=== PATIENT | female | born 1955 | race Caucasian/White ===

== ENCOUNTER → 2016-07-17 | Outpatient (CLI) | payer BC, OTHER ==
[~2016-07-17] MED LIST: /MOM400 PO; COLA50CA3 PO; DIOV320T PO; FLUO10CA8 PO; MUCI600T34 PO; NEXI2.5G PO; PRAV40TA2 PO
--- NOTE | 2016-07-17 16:07 | REP ---
Clinical: Walking pneumonia. Comparison: 10/08/2013. Technique: PA and lateral. Findings: The mediastinum and cardiac silhouette are normal. The lung callahan are clear and without acute consolidation, effusion, or pneumothorax. The skeletal structures are intact and normal. Impression: 1. No acute cardiopulmonary process. Signed by Luis Bills MD 07/17/2016 03:59 P
--- NOTE | 2016-07-18 09:28 | ECGEPIP ---
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
== END ==
LOC: M RAD 15:31
PROVIDERS: ATTEND Family Medicine
DX: J44.9 Chronic obstructive pulmonary disease, unspecified (principal); I10 Essential (primary) hypertension

== ENCOUNTER → 2016-07-18 | Outpatient (CLI) | payer BC, OTHER ==
[2016-07-18 13:09] LABS: MEAN CORPUSCULAR HEMOGLOBIN 34.6 pg (27.0-33.0); MEAN CORPUSCULAR HGB CONC 35.8 g/dl (32.0-36.5); MEAN CORPUSCULAR VOLUME 96.5 fl (80.0-96.0); RED CELL DISTRIBUTION WIDTH 12.8 % (11.5-14.5); WHITE BLOOD COUNT 7.1 K/mm3 (4.0-10.0)
[2016-07-18 14:12] LABS: VITAMIN B12 LEVEL 868 PG/ML (247-911)
[2016-07-18 14:21] LABS: ALBUMIN/GLOBULIN RATIO 1.38 (1.00-1.93); ALKALINE PHOSPHATASE 88 U/L (45-117); ALT/SGPT 36 U/L (12-78); ANION GAP 7 MEQ/L (8-16); AST/SGOT 23 U/L (15-37); BILIRUBIN,TOTAL 0.5 MG/DL (0.2-1.0); BLOOD UREA NITROGEN 14 MG/DL (7-18); CARBON DIOXIDE LEVEL 31 MEQ/L (21-32); CHLORIDE LEVEL 101 MEQ/L (98-107); CHOLESTEROL LEVEL 232 MG/DL (<200); CREATININE FOR GFR 0.83 MG/DL (0.55-1.02); GLOMERULAR FILTRATION RATE > 60.0 (>45); GLUCOSE, FASTING 87 MG/DL (80-110); PERCENT SATURATION 30.8 % (13.2-37.4); POTASSIUM SERUM 3.9 MEQ/L (3.5-5.1); SODIUM LEVEL 139 MEQ/L (136-145); THYROXINE (T4) 10.9 UG/DL (4.5-12.0); TOTAL IRON BINDING CAPACITY 380 UG/DL (250-450); TOTAL PROTEIN 6.9 GM/DL (6.4-8.2); TRIGLYCERIDES LEVEL 70 MG/DL (<150)
== END ==
LOC: M LAB 12:37
PROVIDERS: ATTEND Family Medicine
DX: D64.9 Anemia, unspecified (principal); R53.83 Other fatigue; E03.9 Hypothyroidism, unspecified

== ENCOUNTER → 2016-11-28 | Outpatient (CLI) | payer BC, OTHER ==
[2016-11-28 10:35] LABS: MEAN CORPUSCULAR HEMOGLOBIN 33.6 pg (27.0-33.0); MEAN CORPUSCULAR VOLUME 98.6 fl (80.0-96.0); RED CELL DISTRIBUTION WIDTH 13.3 % (11.5-14.5); WHITE BLOOD COUNT 6.5 K/mm3 (4.0-10.0)
[2016-11-28 10:52] LABS: ALBUMIN 3.9 GM/DL (3.2-5.2); ALBUMIN/GLOBULIN RATIO 1.26 (1.00-1.93); ALKALINE PHOSPHATASE 71 U/L (45-117); ALT/SGPT 37 U/L (12-78); ANION GAP 3 MEQ/L (8-16); AST/SGOT 29 U/L (15-37); BILIRUBIN,TOTAL 0.5 MG/DL (0.2-1.0); BLOOD UREA NITROGEN 18 MG/DL (7-18); CALCIUM LEVEL 8.8 MG/DL (8.8-10.2); CARBON DIOXIDE LEVEL 32 MEQ/L (21-32); CHLORIDE LEVEL 104 MEQ/L (98-107); CHOLESTEROL LEVEL 248 MG/DL (<200); CREATININE FOR GFR 0.77 MG/DL (0.55-1.02); GLOMERULAR FILTRATION RATE > 60.0 (>45); GLUCOSE, FASTING 108 MG/DL (80-110); SODIUM LEVEL 139 MEQ/L (136-145); TRIGLYCERIDES LEVEL 143 MG/DL (<150)
== END ==
LOC: M LAB 09:45
PROVIDERS: ATTEND Family Medicine
DX: E55.9 Vitamin D deficiency, unspecified (principal); I10 Essential (primary) hypertension; E03.9 Hypothyroidism, unspecified

== ENCOUNTER → 2017-02-15 | Outpatient (CLI) | payer BC, OTHER ==
--- NOTE | 2017-02-16 09:34 | REPMRS ---
Patient History The patient states she had a clinical breast exam in 12/23 Patient is postmenopausal and had first child at age 32. Family history of uterine cancer in mother and breast cancer in maternal aunt at age 50 or over. Digital Woman Screen Mammo: February 16, 2017 - Exam #: [id number] Bilateral CC and MLO view(s) were taken. Technologist: Swetha Wiley, Technologist Prior study comparison: February 15, 2016, digital woman screen mammo performed at [facility]. February 02, 2015, digital woman screen mammo performed at [facility]. FINDINGS: There are scattered fibroglandular densities. There has been no change in the appearance of the mammogram from the prior studies. There is a mild amount of residual fibroglandular tissue which is fairly symmetric. There is no interval development of dominant mass, architectural distortion, or clustered microcalcification suggestive of malignancy. ASSESSMENT: BI-RADS/ACR category 1 mammogram. Negative. Recommendation Routine screening mammogram in 1 year (for women over age 40). This mammogram was interpreted with the aid of an FDA-approved computer-aided dectection system. Electronically Signed By: Brigido Vegas MD 02/16/17 0934
== END ==
LOC: M WHC 15:23
PROVIDERS: ATTEND Obstetrics & Gynecology
DX: Z12.31 Encounter for screening mammogram for malignant neoplasm of breast (principal)

== ENCOUNTER → 2017-06-26 | Outpatient (CLI) | payer BC, OTHER ==
[2017-06-26 08:45] LABS: ANION GAP 8 MEQ/L (8-16); BLOOD UREA NITROGEN 20 MG/DL (7-18); CARBON DIOXIDE LEVEL 29 MEQ/L (21-32); CHLORIDE LEVEL 104 MEQ/L (98-107); CREATININE FOR GFR 0.89 MG/DL (0.55-1.02); GLOMERULAR FILTRATION RATE > 60.0 (>45); GLUCOSE, FASTING 104 MG/DL (80-110); POTASSIUM SERUM 4.3 MEQ/L (3.5-5.1); SODIUM LEVEL 141 MEQ/L (136-145)
== END ==
LOC: M LAB 07:36
PROVIDERS: ATTEND Family Medicine
DX: I10 Essential (primary) hypertension (principal)

== ENCOUNTER → 2017-08-31 | Outpatient (CLI) | payer BC, OTHER | LOC: M RAD 13:14 | DX: M66.371 Spontaneous rupture of flexor tendons, right ankle and foot (principal); M21.41 Flat foot [pes planus] (acquired), right foot | CPT/HCPCS: 73721 ==

== ENCOUNTER → 2018-02-19 | Outpatient (CLI) | payer BC, OTHER | LOC: M WHC 08:21 | DX: Z12.31 Encounter for screening mammogram for malignant neoplasm of breast (principal) | CPT/HCPCS: 77067 ==

== ENCOUNTER → 2018-08-14 | Outpatient (CLI) | payer OTHER, BC ==
[2018-08-14 13:18] LABS: HEMATOCRIT 41.4 % (36.0-47.0); HEMOGLOBIN 13.9 g/dl (12.0-15.5); MEAN CORPUSCULAR HEMOGLOBIN 32.3 pg (27.0-33.0); MEAN CORPUSCULAR HGB CONC 33.6 g/dl (32.0-36.5); MEAN CORPUSCULAR VOLUME 96.1 fl (80.0-96.0); PLATELET COUNT, AUTOMATED 202 10^3/uL (150-450); RED BLOOD COUNT 4.31 10^6/uL (4.00-5.40)
[2018-08-14 13:27] LABS: WHITE BLOOD COUNT 8.4 10^3/uL (4.0-10.0)
[2018-08-14 13:49] LABS: ALBUMIN 4.1 GM/DL (3.2-5.2); ALT/SGPT 64 U/L (12-78); BILIRUBIN,TOTAL 0.4 MG/DL (0.2-1.0); BLOOD UREA NITROGEN 12 MG/DL (7-18); CALCIUM LEVEL 8.9 MG/DL (8.8-10.2); CARBON DIOXIDE LEVEL 30 MEQ/L (21-32); CHLORIDE LEVEL 102 MEQ/L (98-107); CHOLESTEROL LEVEL 294 MG/DL (<200); CHOLESTEROL RISK RATIO 5.444 (<5); CREATININE FOR GFR 0.79 MG/DL (0.55-1.30); FREE T3 2.7 PG/ML (2.2-4.0); FREE T4 0.95 NG/DL (0.76-1.46); GLOMERULAR FILTRATION RATE > 60.0 (>45); GLUCOSE, FASTING 104 MG/DL (70-100); HDL CHOLESTEROL 54 MG/DL (>40); LDL CHOLESTEROL 192 MG/DL (<100); NON-HDL-C 240 MG/DL; POTASSIUM SERUM 4.3 MEQ/L (3.5-5.1); SODIUM LEVEL 138 MEQ/L (136-145); TOTAL 25(OH) VITAMIN D 23.5 NG/ML (30.0-100.0); TRIGLYCERIDES LEVEL 239 MG/DL (<150); URIC ACID 4.8 MG/DL (2.6-6.0)
[2018-08-14 14:01] LABS: ATYPICAL LYMPH 2 % (0-5); EOSINOPHILS 2 % (0-5); LYMPHOCYTES 66 % (16-52); MONOCYTES 7 % (0-8); NEUTROPHILS 23 % (35-75)
[2018-08-14 14:02] LABS: PLATELET ESTIMATE NORMAL (NORMAL)
== END ==
LOC: M WUC 09:33
PROVIDERS: ATTEND Family Medicine
DX: E55.9 Vitamin D deficiency, unspecified (principal); E03.9 Hypothyroidism, unspecified; I10 Essential (primary) hypertension; M10.9 Gout, unspecified

== ENCOUNTER → 2019-02-10 | Outpatient (CLI) | payer OTHER, BC ==
[~2019-02-10] MED LIST changes: -/MOM400 PO; +MILK10SU PO
[2019-02-10 09:31] LABS: ALT/SGPT 53 U/L (12-78); BILIRUBIN,TOTAL 0.4 MG/DL (0.2-1.0); BLOOD UREA NITROGEN 17 MG/DL (7-18); CALCIUM LEVEL 9.1 MG/DL (8.8-10.2); CARBON DIOXIDE LEVEL 30 MEQ/L (21-32); CHLORIDE LEVEL 103 MEQ/L (98-107); CHOLESTEROL LEVEL 175 MG/DL (<200); CHOLESTEROL RISK RATIO 2.868 (<5); CREATININE FOR GFR 0.79 MG/DL (0.55-1.30); GLOMERULAR FILTRATION RATE > 60.0 (>45); GLUCOSE, FASTING 112 MG/DL (70-100); HDL CHOLESTEROL 61 MG/DL (>40); LDL CHOLESTEROL 81 MG/DL (<100); NON-HDL-C 114 MG/DL; POTASSIUM SERUM 4.6 MEQ/L (3.5-5.1); SODIUM LEVEL 139 MEQ/L (136-145); TRIGLYCERIDES LEVEL 164 MG/DL (<150)
[2019-02-10 12:04] LABS: TOTAL 25(OH) VITAMIN D 38.5 NG/ML (30.0-100.0)
== END ==
LOC: M WUC 08:17
PROVIDERS: ATTEND Family Medicine
DX: E55.9 Vitamin D deficiency, unspecified (principal); E78.5 Hyperlipidemia, unspecified

== ENCOUNTER 2019-02-23 10:39 | Emergency (ER) | payer BC, OTHER ==
[~2019-02-23] VITALS: Ht 170.2 cm; Wt 118.6 kg
[2019-02-23 11:34] LABS: HEMATOCRIT 40.8 % (36.0-47.0); HEMOGLOBIN 14.3 g/dl (12.0-15.5); MEAN CORPUSCULAR HEMOGLOBIN 33.6 pg (27.0-33.0); MEAN CORPUSCULAR VOLUME 95.8 fl (80.0-96.0); PLATELET COUNT, AUTOMATED 173 10^3/uL (150-450); RED BLOOD COUNT 4.26 10^6/uL (4.00-5.40)
[2019-02-23 11:35] LABS: WHITE BLOOD COUNT 8.7 10^3/uL (4.0-10.0)
[2019-02-23 11:43] LABS: ATYPICAL LYMPH 6 % (0-5); BASOPHILS 1 % (0-4); EOSINOPHILS 2 % (0-5); LYMPHOCYTES 72 % (16-52); MONOCYTES 4 % (0-8); NEUTROPHILS 15 % (35-75)
[2019-02-23 11:44] LABS: ANISOCYTOSIS 1+; PLATELET ESTIMATE NORMAL (NORMAL); POLYCHROMASIA 1+
[2019-02-23 11:48] LABS: INR 1.03; PROTHROMBIN TIME 13.2 SECONDS (11.8-14.0)
[2019-02-23 11:49] LABS: PARTIAL THROMBOPLASTIN TIME 26.1 SECONDS (25.0-38.4)
[2019-02-23 12:04] LABS: BLOOD UREA NITROGEN 11 MG/DL (7-18); CALCIUM LEVEL 9.3 MG/DL (8.8-10.2); CARBON DIOXIDE LEVEL 28 MEQ/L (21-32); CHLORIDE LEVEL 105 MEQ/L (98-107); CK-MB VALUE MASS 2.3 NG/ML (<3.6); CPK CREATINE PHOSPHOKINASE 157 U/L (26-192); GLOMERULAR FILTRATION RATE > 60.0 (>45); GLUCOSE, FASTING 168 MG/DL (70-100); MB/CK RELATIVE INDEX 1.46 (< OR =4); POTASSIUM SERUM 3.5 MEQ/L (3.5-5.1); SODIUM LEVEL 139 MEQ/L (136-145); TROPONIN I < 0.02 NG/ML (< 0.10)
[2019-02-23] MEDS ORDERED: MONT10TA2 PO (12:32)
[2019-02-23] MEDS ORDERED: FLUO20CA19 PO (12:32)
[2019-02-23] MEDS ORDERED: MUCI1TAB18 PO (12:32)
[2019-02-23] MEDS ORDERED: ASPI81CH2 PO (12:32)
[2019-02-23] MEDS ORDERED: LOSA100T50 PO (12:32)
[2019-02-23] MEDS ORDERED: SYNT75TA PO (12:32)
[2019-02-23] MEDS ORDERED: ZYLO300T6 PO (12:32)
[2019-02-23] MEDS ORDERED: COLC1TAB13 PO (12:32)
[2019-02-23] MEDS ORDERED: ATOR40TA75 PO (12:32)
[2019-02-23] MEDS ORDERED: D-50CAP PO (12:32)
[2019-02-23] MEDS ORDERED: OMEP40CA97 PO (12:32)
[2019-02-23] MEDS ORDERED: MAGN250T7 PO (12:32)
[2019-02-23 12:44] VITALS: BP 172/94
[2019-02-23] MEDS ORDERED: LOSARTAN 50 MG TAB PO ONE (12:45)
[2019-02-23] MEDS ORDERED: TEARSOL10 OP (12:56)
[2019-02-23] MEDS ORDERED: VALT500T PO (12:56)
[2019-02-23 13:05] VITALS: BP 160/85
--- NOTE | 2019-02-23 19:26 | ECGEPIP ---
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
--- NOTE | 2019-02-24 08:01 | REP ---
CT BRAIN WITHOUT CONTRAST: 02/23/2019. Clinical history: Possible CVA. Findings: Standard noncontrast views were obtained with soft tissue and bone windows presented. There are no prior studies. Lateral ventricles midline, symmetric and without dilatation or displacement. Third and fourth ventricles also unremarkable. There is mild cerebral atrophy greatest in the temporal and frontal lobes. May be slightly greater than I would expect for this age. Basal ganglia symmetric. There is heterogeneous low attenuation white matter change that may reflect some degree of small-vessel ischemic disease. The cortical stripe silhouette mildly atrophic was preserved. There is no vascular territory infarct, intracranial hemorrhage, mass, mass effect or abnormal extra-axial fluid collection. Posterior fossa shows the brainstem intact and the cerebellum preserved. There are atherosclerotic calcifications in the vertebral basilar arteries and carotid siphons. Mastoids, sphenoids and left frontal sinus intact. The right frontal and ethmoid air cells and a few left ethmoid air cells show mucosal thickening. Calvarium and skull base otherwise intact. Impression: 1. Some mild atrophy with small vessel chronic ischemic change of portion of ventricular size. No acute infarct, intracranial hemorrhage, mass or mass effect. 2. Ethmoid and right frontal sinus mucosal thickening. 3. No focal lesion. Skull base or calvarium. Atherosclerotic calcifications carotid siphons and vertebral basilar arteries. Electronically Signed by Colin Tate MD 02/24/2019 08:07 A
--- NOTE | 2019-02-24 08:07 | REP ---
AP PORTABLE CHEST: 02/23/2019. Comparison: 07/17/2016. Clinical history: CVA. Findings: Lungs well inflated. There is no pleural effusion, lateral pleural thickening or apical scarring. Some minor basilar fibrotic or atelectatic changes but no dense consolidation or parenchymal mass. Heart, mediastinal, and hilar contours intact. Aorta normal. Airway intact. Some degenerative changes of the spine. Impression: 1. Some basilar fibrotic change without acute cardiopulmonary disease. Electronically Signed by Colin Tate MD 02/24/2019 08:08 A
[2019-02-26 00:06] LABS: Lyme Disease IgG/IgM Antibodie <0.91 ISR (0.00-0.90); Lyme Disease IgM Ab Quantitati <0.80 index (0.00-0.79)
== END 2019-02-23 13:13 | disposition home or self-care (01) ==
LOC: M ED 10:39
DX: G51.0 Bell's palsy (principal); I10 Essential (primary) hypertension; E78.00 Pure hypercholesterolemia, unspecified; F33.9 Major depressive disorder, recurrent, unspecified; F41.9 Anxiety disorder, unspecified; Z79.899 Other long term (current) drug therapy; Z79.890 Hormone replacement therapy; Z79.82 Long term (current) use of aspirin; Z88.5 Allergy status to narcotic agent

== ENCOUNTER → 2019-03-14 | Outpatient (CLI) | payer BC ==
[~2019-03-14] MED LIST changes: +ASPI81CH2 PO; +ATOR40TA75 PO; +COLC1TAB13 PO; +D-50CAP PO; +FLUO20CA19 PO; +LOSA100T50 PO; +MAGN250T7 PO; +MONT10TA2 PO; +MUCI1TAB18 PO; +OMEP40CA2 PO; +SYNT75TA PO; +TEARSOL10 OP; +VALT500T PO; +ZYLO300T6 PO
--- NOTE | 2019-03-14 15:16 | REPMRS ---
Patient History The patient states she had a clinical breast exam in 12/2018. Patient is postmenopausal and had first child at age 32. Family history of breast cancer under age 50 in maternal aunt, endometrial cancer at age 50 or over in mother. 3D TOMOSYNTHESIS WAS PERFORMED. The [facility] lifetime risk for breast cancer is 13.5%. Digital Woman Screen Mammo: March 14, 2019 - Exam #: [id number] Bilateral CC and MLO view(s) were taken. Technologist: Ave Lucero Technologist Prior study comparison: February 19, 2018, bilateral digital woman screen mammo performed at [facility]. February 16, 2017, digital woman screen mammo performed at [facility]. FINDINGS: There are scattered fibroglandular densities. There has been no change in the appearance of the mammogram from the prior studies. There is a mild amount of residual fibroglandular tissue which is fairly symmetric. There is no interval development of dominant mass, architectural distortion, or clustered microcalcification suggestive of malignancy. Assessment: BI-RADS/ACR category 1 mammogram. Negative Mammogram. Recommendation Routine screening mammogram in 1 year (for women over age 40). This mammogram was interpreted with the aid of an FDA-approved computer-aided dectection system. Electronically Signed By: Brigido Vegas MD 03/14/19 9727
== END ==
LOC: M WHC 14:25
PROVIDERS: ATTEND Obstetrics & Gynecology
DX: Z12.31 Encounter for screening mammogram for malignant neoplasm of breast (principal); Z80.3 Family history of malignant neoplasm of breast; Z80.49 Family history of malignant neoplasm of other genital organs

== ENCOUNTER → 2019-03-17 | Outpatient (CLI) | payer BC ==
[2019-03-17 17:24] LABS: FREE T4 0.97 NG/DL (0.76-1.46); FREE THYROXINE INDEX 3.2 % (1.3-4.8); RHEUMATOID FACTOR QUANT < 10.0 IU/ML (<15.0); T UPTAKE 31 % (30-39); THYROID STIMULATING HORMONE 0.753 uIU/ML (0.358-3.740); THYROXINE (T4) 10.2 UG/DL (4.5-12.0)
[2019-03-17 17:25] LABS: VITAMIN B12 LEVEL 696 PG/ML
[2019-03-17 17:34] LABS: FOLATE > 24.0 NG/ML
[2019-03-17 18:09] LABS: HEMOGLOBIN A1c 6.1 %
[2019-03-23 00:06] LABS: ANTINUCLEAR ANTIBODIES DIRECT Negative (Negative); VITAMIN B1 LEVEL WHOLE BLOOD 234.8 nmol/L (66.5-200.0); VITAMIN B6,PYRIDOXAL PHOSPHATE 48.7 ug/L (2.0-32.8); VITAMIN E(ALPHA TOCOPHEROL) 15.8 mg/L (9.0-29.0); VITAMIN E(GAMMA TOCOPHEROL) 0.9 mg/L (0.5-4.9)
== END ==
LOC: M WUC 11:37
PROVIDERS: ATTEND Psychiatry & Neurology Neurology
DX: E11.9 Type 2 diabetes mellitus without complications (principal); E07.9 Disorder of thyroid, unspecified; R20.0 Anesthesia of skin; R41.3 Other amnesia

== ENCOUNTER → 2019-06-06 | Outpatient (CLI) | payer BC, OTHER ==
[~2019-06-06] MED LIST changes: -OMEP40CA2 PO; +OMEP40CA97 PO
--- NOTE | 2019-06-06 13:29 | REP ---
Clinical: Pain. Trauma. Technique: AP, lateral, bilateral oblique views of the right ankle. Findings: Generalized swelling along with osteopenia and age-related degenerative changes are appreciated. No obvious acute fracture or dislocation. Impression: Swelling. Degenerative changes. No obvious acute fracture or dislocation. If the patient remains symptomatic consider reevaluation in 3-5 days. Electronically Signed by Luis Bills MD 06/06/2019 01:21 P
== END ==
LOC: M ADAMS 12:52
PROVIDERS: ATTEND Physician Assistant
DX: M25.571 Pain in right ankle and joints of right foot (principal); M79.89 Other specified soft tissue disorders; M19.071 Primary osteoarthritis, right ankle and foot

== ENCOUNTER → 2020-03-16 | Outpatient (CLI) | payer BC ==
[~2020-03-16] MED LIST changes: -FLUO20CA19 PO; +FLUO20CA22 PO; -MONT10TA2 PO; +MONT10TA4 PO
--- NOTE | 2020-03-16 10:19 | REPMRS ---
Patient History The patient states she had a clinical breast exam in January 2020. Family history of breast cancer under age 50 in maternal aunt, endometrial cancer at age 50 or over in mother. 3D TOMOSYNTHESIS WAS PERFORMED. [facility] 13.[facility] %. MARLO HINKLE A. Digital Woman Screen Mammo: March 16, 2020 - Exam #: [id number] Bilateral CC and MLO view(s) were taken. Technologist: Marie Rowell, Technologist Prior study comparison: March 14, 2019, bilateral digital woman screen mammo performed at [facility]. February 19, 2018, bilateral digital woman screen mammo performed at [facility]. FINDINGS: There are scattered fibroglandular densities. There has been no change in the appearance of the mammogram from the prior studies. There is a mild amount of residual fibroglandular tissue which is fairly symmetric. There is no interval development of dominant mass, architectural distortion, or clustered microcalcification suggestive of malignancy. Assessment: BI-RADS/ACR category 1 mammogram. Negative Mammogram. Recommendation Routine screening mammogram in 1 year (for women over age 40). This mammogram was interpreted with the aid of an FDA-approved computer-aided dectection system. Electronically Signed By: Brigido Vegas MD 03/16/20 2622
== END ==
LOC: M WHC 09:03
PROVIDERS: ATTEND Obstetrics & Gynecology
DX: Z12.31 Encounter for screening mammogram for malignant neoplasm of breast (principal)

== ENCOUNTER → 2020-03-22 | Outpatient (CLI) | payer BC ==
[2020-03-22 16:25] LABS: HEMATOCRIT 43.3 % (36.0-47.0); HEMOGLOBIN 14.2 g/dl (12.0-15.5); MEAN CORPUSCULAR HEMOGLOBIN 32.1 pg (27.0-33.0); MEAN CORPUSCULAR HGB CONC 32.8 g/dl (32.0-36.5); MEAN CORPUSCULAR VOLUME 97.7 fl (80.0-96.0); PLATELET COUNT, AUTOMATED 178 10^3/uL (150-450); RED BLOOD COUNT 4.43 10^6/uL (4.00-5.40); WHITE BLOOD COUNT 11.4 10^3/uL (4.0-10.0)
[2020-03-22 17:12] LABS: ALBUMIN 4.1 GM/DL (3.2-5.2); ALT/SGPT 112 U/L (12-78); BILIRUBIN,TOTAL 0.5 MG/DL (0.2-1.0); BLOOD UREA NITROGEN 9 MG/DL (7-18); CALCIUM LEVEL 9.2 MG/DL (8.8-10.2); CARBON DIOXIDE LEVEL 30 MEQ/L (21-32); CHLORIDE LEVEL 102 MEQ/L (98-107); CHOLESTEROL LEVEL 181 MG/DL (<200); CHOLESTEROL RISK RATIO 3.232 (<5); CREATININE FOR GFR 0.86 MG/DL (0.55-1.30); FREE T3 3.3 PG/ML (2.2-4.0); FREE T4 1.06 NG/DL (0.76-1.46); GLOMERULAR FILTRATION RATE > 60.0 (>45); GLUCOSE, FASTING 99 MG/DL (70-100); HDL CHOLESTEROL 56 MG/DL (>40); LDL CHOLESTEROL 82 MG/DL (<100); NON-HDL-C 125 MG/DL; POTASSIUM SERUM 4.2 MEQ/L (3.5-5.1); SODIUM LEVEL 139 MEQ/L (136-145); THYROID STIMULATING HORMONE 0.998 uIU/ML (0.358-3.740); TOTAL 25(OH) VITAMIN D 35.5 NG/ML (30.0-100.0); TOTAL PROTEIN 7.1 GM/DL (6.4-8.2); TRIGLYCERIDES LEVEL 216 MG/DL (<150); URIC ACID 3.1 MG/DL (2.6-6.0)
[2020-03-22 17:51] LABS: HEMOGLOBIN A1c 6.1 %
== END ==
LOC: M WUC 10:36
PROVIDERS: ATTEND Family Medicine
DX: E55.9 Vitamin D deficiency, unspecified (principal); E03.9 Hypothyroidism, unspecified; I10 Essential (primary) hypertension; M10.9 Gout, unspecified; R73.01 Impaired fasting glucose

== ENCOUNTER → 2020-07-05 | Outpatient (CLI) | payer OTHER, BC ==
[~2020-07-05] MED LIST changes: +COLC0.6T47 PO; -COLC1TAB13 PO; -MONT10TA4 PO; +MONT5TAB2 PO
[2020-07-05 11:00] LABS: ALBUMIN 3.9 GM/DL (3.2-5.2); ALT/SGPT 147 U/L (12-78); BILIRUBIN,DIRECT 0.1 MG/DL (0.0-0.2); BILIRUBIN,TOTAL 0.4 MG/DL (0.2-1.0); FERRITIN 32 NG/ML (8-252); IRON (FE) 65 UG/DL (50-170); PERCENT SATURATION 17.5 % (13.2-45.0); TOTAL IRON BINDING CAPACITY 371 UG/DL (250-450); TOTAL PROTEIN 6.8 GM/DL (6.4-8.2)
[2020-07-05 11:21] LABS: HEPATITIS B SURFACE ANTIGEN NEGATIVE (NEGATIVE)
[2020-07-05 11:47] LABS: HEPATITIS C VIRUS ABY INDEX 0.1 INDEX (<0.8)
[2020-07-05 11:48] LABS: HEPATITIS B CORE ANTIBODY IGM NEGATIVE (NEGATIVE)
[2020-07-05 11:50] LABS: HEPATITIS A ANTIBODY IGM NEGATIVE (NEGATIVE)
== END ==
LOC: M WUC 08:39
PROVIDERS: ATTEND Family Medicine
DX: R74.01 Elevation of levels of liver transaminase levels (principal)

== ENCOUNTER → 2020-08-16 | Outpatient (CLI) | payer BC, OTHER ==
[~2020-08-16] MED LIST changes: +MONT10TA10 PO; -MONT5TAB2 PO
== END ==
LOC: M LABSMTC 12:56
PROVIDERS: ATTEND Family Medicine
DX: Z20.828 Contact with and (suspected) exposure to other viral communicable diseases (principal)
CPT/HCPCS: C9803; U0003

== ENCOUNTER → 2020-12-31 | Outpatient (CLI) | payer BC, OTHER ==
[~2020-12-31] MED LIST changes: +OMEP40CA4 PO; -OMEP40CA97 PO
--- NOTE | 2020-12-31 14:39 | REP ---
INDICATION: LOCALIZED SWELLING/MASS/LUMP ? HERNIA. COMPARISON: There are no priors for comparison. TECHNIQUE: Ultrasonographic evaluation of the left parasagittal lower abdomen over a palpable mass. FINDINGS: There is an echogenic 2 x 1.1 x 1.8 cm sized area. Color Doppler imaging shows no evidence of internal blood flow. IMPRESSION: Ultrasonographic findings, as described above, suggest possible hematoma or for possible area of fat necrosis. Contrast-enhanced CT examination is recommended. Accredited by the [employer] in General Ultrasound. <Electronically signed by Luis Buckner > 12/31/20 [id number]
== END ==
LOC: M RAD 13:20
PROVIDERS: ATTEND Family Medicine
DX: R22.9 Localized swelling, mass and lump, unspecified (principal)

== ENCOUNTER → 2021-01-17 | Outpatient (CLI) | payer OTHER, BC ==
[2021-01-17 12:18] LABS: HEMATOCRIT 43.4 % (36.0-47.0); HEMOGLOBIN 14.6 g/dl (12.0-15.5); MEAN CORPUSCULAR HEMOGLOBIN 33.3 pg (27.0-33.0); MEAN CORPUSCULAR HGB CONC 33.6 g/dl (32.0-36.5); MEAN CORPUSCULAR VOLUME 98.9 fl (80.0-96.0); PLATELET COUNT, AUTOMATED 163 10^3/uL (150-450); RED BLOOD COUNT 4.39 10^6/uL (4.00-5.40)
[2021-01-17 12:20] LABS: WHITE BLOOD COUNT 10.7 10^3/uL (4.0-10.0)
[2021-01-17 12:49] LABS: ATYPICAL LYMPH 18 % (0-5); BASOPHILS 1 % (0-1); EOSINOPHILS 1 % (0-3); LYMPHOCYTES 59 % (16-44); MONOCYTES 1 % (0-5); NEUTROPHILS 19 % (28-66); PLATELET ESTIMATE DECREASED (NORMAL)
[2021-01-17 12:58] LABS: ALBUMIN 4.5 GM/DL (3.2-5.2); ALT/SGPT 45 U/L (12-78); BILIRUBIN,TOTAL 0.5 MG/DL (0.2-1.0); BLOOD UREA NITROGEN 17 MG/DL (7-18); CALCIUM LEVEL 9.7 MG/DL (8.8-10.2); CARBON DIOXIDE LEVEL 30 MEQ/L (21-32); CHLORIDE LEVEL 105 MEQ/L (98-107); CREATININE FOR GFR 0.84 MG/DL (0.55-1.30); FOLATE > 24.0 NG/ML (>5.4); GLOMERULAR FILTRATION RATE > 60.0 (>45); GLUCOSE, FASTING 91 MG/DL (70-100); POTASSIUM SERUM 4.2 MEQ/L (3.5-5.1); SODIUM LEVEL 140 MEQ/L (136-145); TOTAL PROTEIN 7.3 GM/DL (6.4-8.2); VITAMIN B12 LEVEL 749 PG/ML (247-911)
== END ==
LOC: M WUC 09:28
PROVIDERS: ATTEND Family Medicine
DX: G31.84 Mild cognitive impairment of uncertain or unknown etiology (principal)

== ENCOUNTER → 2021-03-11 | Outpatient (CLI) | payer OTHER, BC ==
[2021-03-11 11:14] LABS: HEMATOCRIT 39.9 % (36.0-47.0); HEMOGLOBIN 13.6 g/dl (12.0-15.5); MEAN CORPUSCULAR HEMOGLOBIN 33.7 pg (27.0-33.0); MEAN CORPUSCULAR HGB CONC 34.1 g/dl (32.0-36.5); MEAN CORPUSCULAR VOLUME 98.8 fl (80.0-96.0); PLATELET COUNT, AUTOMATED 173 10^3/uL (150-450); RED BLOOD COUNT 4.04 10^6/uL (4.00-5.40); WHITE BLOOD COUNT 8.8 10^3/uL (4.0-10.0)
[2021-03-11 11:37] LABS: HEMOGLOBIN A1c 5.4 %
[2021-03-11 11:44] LABS: ALBUMIN 3.7 GM/DL (3.2-5.2); ALT/SGPT 50 U/L (12-78); BILIRUBIN,TOTAL 0.4 MG/DL (0.2-1.0); BLOOD UREA NITROGEN 11 MG/DL (7-18); CARBON DIOXIDE LEVEL 28 MEQ/L (21-32); CHLORIDE LEVEL 107 MEQ/L (98-107); CHOLESTEROL LEVEL 110 MG/DL (<200); CHOLESTEROL RISK RATIO 2.075 (<5); CREATININE FOR GFR 0.92 MG/DL (0.55-1.30); GLOMERULAR FILTRATION RATE > 60.0 (>45); GLUCOSE, FASTING 110 MG/DL (70-100); HDL CHOLESTEROL 53 MG/DL (>40); LDL CHOLESTEROL 46 MG/DL (<100); NON-HDL-C 57 MG/DL; POTASSIUM SERUM 4.2 MEQ/L (3.5-5.1); SODIUM LEVEL 141 MEQ/L (136-145); TOTAL PROTEIN 6.3 GM/DL (6.4-8.2); TRIGLYCERIDES LEVEL 53 MG/DL (<150); URIC ACID 4.6 MG/DL (2.6-6.0)
[2021-03-11 11:47] LABS: TOTAL 25(OH) VITAMIN D 48.8 NG/ML (30.0-100.0)
== END ==
LOC: M WUC 08:26
PROVIDERS: ATTEND Family Medicine
DX: E55.9 Vitamin D deficiency, unspecified (principal); I10 Essential (primary) hypertension; M10.9 Gout, unspecified; R73.01 Impaired fasting glucose

== ENCOUNTER → 2021-03-21 | Outpatient (CLI) | payer BC ==
--- NOTE | 2021-03-21 09:26 | REPMRS ---
Patient History The patient states she had a clinical breast exam in January 2021. Family history of breast cancer under age 50 in maternal aunt, endometrial cancer at age 50 or over in mother. No breast complaints today Patient signed the MRS sheet 1st covid vaccine 09/06/20-right arm-Moderna 2nd covid vaccine 10/04/20-right arm Patient states she has had a 35lb intentional weight loss in the last year Priors on PACS Patient Identification Verified Digital Woman Screen Mammo: March 21, 2021 - Exam #: [id number] Bilateral CC and MLO view(s) were taken. Technologist: Marie Rowell, Technologist Prior study comparison: March 16, 2020, bilateral digital woman screen mammo performed at [facility] [place]. March 14, 2019, bilateral digital woman screen mammo performed at [facility] [place]. FINDINGS: There are scattered fibroglandular densities. Screening. Digital screening (2D) mammography was performed bilaterally in the CC and MLO projections. Additionally, breast tomosynthesis (3D mammography) was performed bilaterally in the CC and MLO projections. Todays exam was compared to the prior exam/exams. By history, the patient has no complaints of a palpable breast abnormality or other significant breast complaints. The breasts are unchanged in size and shape. There are no ulises-soft tissue densities or spiculated masses. There is no internal architectural distortion. Once again, stable benign appearing calcifications are seen.There are no suspicious ulises-calcific clusters. Skin thickening or nipple retraction is not present. IMPRESSION: BI-RADS Category 2- Benign Findings. There is no evidence of malignant alteration of the breasts. Followup examination recommended in one year. The Volpara volumetric breast density category is B, there are scattered areas of fibroglandular densities. This mammogram was read with the assistance of [employer],an FDA approved computer aided detection system for mammography. The lifetime Tyrer-Cuzick score is 12.5 % Negative x-ray reports should not delay surgical consultation if a dominant or clinically suspicious mass is present. Not all breast cancers can be identified by mammography. Therefore, we recommend that you continue to perform regular breast self-examination and physical examination and then promptly contact your physician of any concerns or changes. Adenosis and dense breasts may obscure an underlying neoplasm. Assessment: BI-RADS/ACR category 2 mammogram. Benign Findings. Recommendation Routine screening mammogram of both breasts in 1 year. Electronically Signed By: Luis Buckner DO 03/21/21 0945
== END ==
LOC: M WHC 08:23
PROVIDERS: ATTEND Obstetrics & Gynecology
DX: Z12.31 Encounter for screening mammogram for malignant neoplasm of breast (principal); Z80.3 Family history of malignant neoplasm of breast; Z80.49 Family history of malignant neoplasm of other genital organs; R92.1 Mammographic calcification found on diagnostic imaging of breast

== ENCOUNTER → 2021-07-06 | Outpatient (CLI) | payer MEDICARE, BC, OTHER | LOC: M LABSMTC 08:58 | PROVIDERS: ATTEND Pediatrics | DX: Z20.828 Contact with and (suspected) exposure to other viral communicable diseases (principal) | CPT/HCPCS: C9803; U0003 ==

== ENCOUNTER → 2022-03-10 | Outpatient (REF) | payer MEDICARE, OTHER, BC ==
[~2022-03-10] MED LIST changes: +LOSA100T45 PO; -LOSA100T50 PO; -MONT10TA10 PO; +MONT10TA97 PO
== END ==
LOC: M SFHCWAGY 13:02
PROVIDERS: ATTEND Nurse Practitioner Family
DX: Z12.4 Encounter for screening for malignant neoplasm of cervix (principal); N95.2 Postmenopausal atrophic vaginitis
CPT/HCPCS: 87624; G0123

== ENCOUNTER → 2022-03-24 | Outpatient (CLI) | payer MEDICARE, OTHER, BC | LOC: M WHC 06:46 | PROVIDERS: ATTEND Nurse Practitioner Family | DX: Z12.31 Encounter for screening mammogram for malignant neoplasm of breast (principal) ==

== ENCOUNTER → 2022-04-27 | Outpatient (REF) | payer MEDICARE, OTHER, BC | LOC: M LAB REF 11:32 | PROVIDERS: ATTEND Nurse Practitioner Family | DX: R19.7 Diarrhea, unspecified (principal) ==

== ENCOUNTER → 2022-05-17 | Outpatient (CLI) | payer MEDICARE, BC, OTHER ==
[~2022-05-17] MED LIST changes: +ALLO300T2 PO; +NAPR-849 PO
[2022-05-17 13:37] LABS: HEMATOCRIT 39.4 % (36.0-47.0); MEAN CORPUSCULAR HEMOGLOBIN 32.9 pg (27.0-33.0); MEAN CORPUSCULAR VOLUME 99.7 fl (80.0-96.0); PLATELET COUNT, AUTOMATED 160 10^3/uL (150-450); RED BLOOD COUNT 3.95 10^6/uL (4.00-5.40); WHITE BLOOD COUNT 12.9 10^3/uL (4.0-10.0)
[2022-05-17 14:27] LABS: ALBUMIN 4.1 GM/DL (3.2-5.2); ALT/SGPT 36 U/L (12-78); BILIRUBIN,TOTAL 0.5 MG/DL (0.2-1.0); BLOOD UREA NITROGEN 17 MG/DL (7-18); CALCIUM LEVEL 9.4 MG/DL (8.8-10.2); CARBON DIOXIDE LEVEL 30 MEQ/L (21-32); CHLORIDE LEVEL 106 MEQ/L (98-107); CHOLESTEROL LEVEL 167 MG/DL (<200); CREATININE FOR GFR 0.93 MG/DL (0.55-1.30); FREE T3 3.2 PG/ML (2.2-4.0); FREE T4 1.17 NG/DL (0.76-1.46); GLOMERULAR FILTRATION RATE > 60.0 (>45); GLUCOSE, FASTING 109 MG/DL (70-100); HDL CHOLESTEROL 63 MG/DL (>40); LDL CHOLESTEROL 84 MG/DL (<100); NON-HDL-C 104 MG/DL; POTASSIUM SERUM 4.5 MEQ/L (3.5-5.1); SODIUM LEVEL 141 MEQ/L (136-145); THYROID STIMULATING HORMONE 0.882 uIU/ML (0.358-3.740); TOTAL PROTEIN 6.9 GM/DL (6.4-8.2); TRIGLYCERIDES LEVEL 101 MG/DL (<150); URIC ACID 3.6 MG/DL (2.6-6.0)
[2022-05-17 14:45] LABS: ATYPICAL LYMPH 38 % (0-5); EOSINOPHILS 2 % (0-3); LYMPHOCYTES 15 % (16-44); MONOCYTES 7 % (0-5); NEUTROPHILS 30 % (28-66)
[2022-05-17 14:46] LABS: PLATELET ESTIMATE NORMAL (NORMAL)
[2022-05-17 15:15] LABS: TOTAL 25(OH) VITAMIN D 33.6 NG/ML (30.0-100.0)
[2022-05-17 21:03] LABS: HEMOGLOBIN A1c 5.5 %
== END ==
LOC: M WUC 09:08
PROVIDERS: ATTEND Family Medicine
DX: E55.9 Vitamin D deficiency, unspecified (principal); E03.9 Hypothyroidism, unspecified; I10 Essential (primary) hypertension; M10.9 Gout, unspecified; R73.01 Impaired fasting glucose

== ENCOUNTER → 2022-05-18 | Outpatient (CLI) | payer MEDICARE, BC, OTHER | LOC: M LABSMTC 11:47 | PROVIDERS: ATTEND Anesthesiology | DX: Z01.812 Encounter for preprocedural laboratory examination (principal); Z11.52 Encounter for screening for COVID-19 ==

== ENCOUNTER 2022-05-23 08:09 | Day surgery (SDC) | payer MEDICARE, BC, OTHER ==
[~2022-05-23] VITALS: Ht 167.6 cm; Wt 107.5 kg
[~2022-05-23 08:09] MED LIST changes: +NS 1,000 ML IV ONE
[2022-05-23] MEDS ORDERED: LIDOCAINE 2% 100MG/5ML SDV (FOR ANES.) As Ordered ONE (09:25)
[2022-05-23] MEDS ORDERED: MIDAZOLAM INJ 2MG/2ML VIAL (J2250 PER 1MG) As Ordered ONE (09:25)
[2022-05-23] MEDS ORDERED: propofoL 200 MG/20 ML VIAL As Ordered ONE ×2 (09:25→09:59)
[2022-05-23] MEDS ORDERED: hydrALAZINE 20MG/ML 1ML VIAL (J0360 PER 20MG) As Ordered ONE (09:57)
[2022-05-23 10:33] VITALS: BP 134/82
== END 2022-05-23 10:58 | disposition home or self-care (01) ==
LOC: M OPP 08:09
PROVIDERS: ATTEND Internal Medicine Gastroenterology
DX: Z12.11 Encounter for screening for malignant neoplasm of colon (principal); D12.6 Benign neoplasm of colon, unspecified; K52.831 Collagenous colitis; K64.4 Residual hemorrhoidal skin tags; K64.8 Other hemorrhoids; K56.699 Other intestinal obstruction unspecified as to partial versus complete obstruction; I10 Essential (primary) hypertension; E78.00 Pure hypercholesterolemia, unspecified; E03.9 Hypothyroidism, unspecified; F41.9 Anxiety disorder, unspecified; A63.0 Anogenital (venereal) warts; Z87.891 Personal history of nicotine dependence; Z79.02 Long term (current) use of antithrombotics/antiplatelets; Z79.899 Other long term (current) drug therapy; Z88.5 Allergy status to narcotic agent; Z88.7 Allergy status to serum and vaccine; Z88.8 Allergy status to other drugs, medicaments and biological substances
CPT/HCPCS: 45380; 45381; 45385; 88305; J0360; J2250

== ENCOUNTER → 2022-06-12 | Outpatient (REF) | payer MEDICARE, BC, OTHER ==
[~2022-06-12] MED LIST changes: -NS 1,000 ML IV ONE
[2022-06-12 17:13] LABS: HEMATOCRIT 41.4 % (36.0-47.0); HEMOGLOBIN 13.8 g/dl (12.0-15.5); MEAN CORPUSCULAR HEMOGLOBIN 32.5 pg (27.0-33.0); MEAN CORPUSCULAR HGB CONC 33.3 g/dl (32.0-36.5); MEAN CORPUSCULAR VOLUME 97.6 fl (80.0-96.0); PLATELET COUNT, AUTOMATED 182 10^3/uL (150-450); RED BLOOD COUNT 4.24 10^6/uL (4.00-5.40)
[2022-06-12 20:09] LABS: ATYPICAL LYMPH 14 % (0-5); BASOPHILS 1 % (0-1); LYMPHOCYTES 70 % (16-44); MONOCYTES 2 % (0-5); NEUTROPHILS 13 % (28-66); PLATELET ESTIMATE NORMAL (NORMAL)
== END ==
LOC: M LABWUC 16:09
PROVIDERS: ATTEND Family Medicine
DX: D72.829 Elevated white blood cell count, unspecified (principal)

== ENCOUNTER → 2022-07-11 | Outpatient (CLI) | payer MEDICARE, BC, OTHER ==
[2022-07-11 10:10] LABS: BASO % 0.2 % (0.0-1.0); EOS # 0.1 10^3/uL (0.0-0.5); EOS % 0.6 % (0.0-3.0); HEMATOCRIT 40.3 % (36.0-47.0); HEMOGLOBIN 13.5 g/dl (12.0-15.5); LYMPH # 9.9 10^3/uL (1.5-5.0); LYMPH % 75.7 % (24.0-44.0); MEAN CORPUSCULAR HEMOGLOBIN 32.5 pg (27.0-33.0); MEAN CORPUSCULAR HGB CONC 33.5 g/dl (32.0-36.5); MEAN CORPUSCULAR VOLUME 96.9 fl (80.0-96.0); MONO # 0.6 10^3/uL (0.0-0.8); MONO % 4.3 % (2.0-8.0); NEUTROPHILS # 2.5 10^3/uL (1.5-8.5); PLATELET COUNT, AUTOMATED 162 10^3/uL (150-450); RED BLOOD COUNT 4.16 10^6/uL (4.00-5.40); WHITE BLOOD COUNT 13.1 10^3/uL (4.0-10.0)
== END ==
LOC: M LAB 09:40
PROVIDERS: ATTEND Family Medicine
DX: D72.829 Elevated white blood cell count, unspecified (principal); R79.89 Other specified abnormal findings of blood chemistry

== ENCOUNTER → 2022-09-19 | Outpatient (CLI) | payer MEDICARE, BC, OTHER ==
[~2022-09-19] MED LIST changes: +MM S100C PO; +NOXI1TAB PO; +VITMTA PO
== END ==
LOC: M RAD 07:40
PROVIDERS: ATTEND Internal Medicine Hematology & Oncology
DX: D72.820 Lymphocytosis (symptomatic) (principal); R14.0 Abdominal distension (gaseous); N28.1 Cyst of kidney, acquired; C91.10 Chronic lymphocytic leukemia of B-cell type not having achieved remission

== ENCOUNTER → 2023-03-06 | Outpatient (CLI) | payer MEDICARE, BC, OTHER ==
[~2023-03-06] MED LIST changes: +FLUO10CA18; -LOSA100T45 PO; +LOSA100T46 PO; +advil PO
[2023-03-06 09:46] LABS: HEMATOCRIT 39.1 % (36.0-47.0); HEMOGLOBIN 13.4 g/dl (12.0-15.5); MEAN CORPUSCULAR HEMOGLOBIN 32.8 pg (27.0-33.0); MEAN CORPUSCULAR HGB CONC 34.3 g/dl (32.0-36.5); MEAN CORPUSCULAR VOLUME 95.8 fl (80.0-96.0); PLATELET COUNT, AUTOMATED 163 10^3/uL (150-450); RED BLOOD COUNT 4.08 10^6/uL (4.00-5.40); WHITE BLOOD COUNT 12.7 10^3/uL (4.0-10.0)
[2023-03-06 10:14] LABS: ATYPICAL LYMPH 51 % (0-5); BASOPHILS 1 % (0-1); EOSINOPHILS 1 % (0-3); LYMPHOCYTES 25 % (16-44); MONOCYTES 8 % (0-5); NEUTROPHILS 14 % (28-66)
[2023-03-06 10:15] LABS: PLATELET ESTIMATE NORMAL (NORMAL); POLYCHROMASIA 1+
[2023-03-06 10:34] LABS: ALBUMIN 3.8 G/DL (3.2-5.2); ALKALINE PHOSPHATASE 73 U/L (46-116); ALT/SGPT 37 U/L (7.0-40); AST/SGOT 24 U/L (<34); BILIRUBIN,TOTAL 0.4 MG/DL (0.3-1.2); BLOOD UREA NITROGEN 16 MG/DL (9-23); CALCIUM LEVEL 9.3 MG/DL (8.3-10.6); CARBON DIOXIDE LEVEL 30 MMOL/L (20-31); CHLORIDE LEVEL 105 MMOL/L (98-107); GLOMERULAR FILTRATION RATE > 60.0 (>45); GLUCOSE, FASTING 103 MG/DL (74-106); SODIUM LEVEL 141 MMOL/L (136-145); TOTAL PROTEIN 6.6 G/DL (5.7-8.2)
== END ==
LOC: M EKG 08:42
PROVIDERS: ATTEND Family Medicine
DX: Z01.818 Encounter for other preprocedural examination (principal)

== ENCOUNTER → 2023-05-10 | Outpatient (CLI) | payer MEDICARE, BC, OTHER | LOC: M WHC 10:14 | PROVIDERS: ATTEND Nurse Practitioner Family | DX: Z12.31 Encounter for screening mammogram for malignant neoplasm of breast (principal); Z13.820 Encounter for screening for osteoporosis; M85.89 Other specified disorders of bone density and structure, multiple sites ==

== ENCOUNTER → 2023-09-06 | Outpatient (CLI) | payer MEDICARE, BC ==
[~2023-09-06] MED LIST changes: +ACET-683 PO; +META0.52 PO; +MILKSUS3 PO; +THERTAB52 PO
== END ==
LOC: M RAD 08:19
PROVIDERS: ATTEND Internal Medicine Hematology & Oncology
DX: R10.812 Left upper quadrant abdominal tenderness (principal); C91.10 Chronic lymphocytic leukemia of B-cell type not having achieved remission; N28.1 Cyst of kidney, acquired

== ENCOUNTER → 2023-11-16 | Outpatient (CLI) | payer MEDICARE, BC ==
[~2023-11-16] MED LIST changes: +FLUO-290; -FLUO10CA18; +GASTROGRAFIN SOLUTION 30ML As Ordered ONE; +ISOVUE-370 76% 100ML VIAL As Ordered ONE; +MUCI1TAB16 PO
== END ==
LOC: M RAD 08:10
PROVIDERS: ATTEND Internal Medicine Medical Oncology
DX: C91.10 Chronic lymphocytic leukemia of B-cell type not having achieved remission (principal); K57.30 Diverticulosis of large intestine without perforation or abscess without bleeding; N28.1 Cyst of kidney, acquired
CPT/HCPCS: 71260; 74177; Q9963; Q9967

== ENCOUNTER → 2023-12-14 | Outpatient (CLI) | payer MEDICARE, BC, OTHER ==
[~2023-12-14] MED LIST changes: +FLUO-365 PO; -FLUO20CA22 PO; -GASTROGRAFIN SOLUTION 30ML As Ordered ONE; -ISOVUE-370 76% 100ML VIAL As Ordered ONE
[2023-12-14 12:21] LABS: HEMOGLOBIN A1c 5.7 % (4.0-6.0)
[2023-12-14 12:28] LABS: FREE T4 1.24 NG/DL (0.89-1.76); THYROID STIMULATING HORMONE 1.339 uIU/ML (0.55-4.78); URIC ACID 4.5 MG/DL (3.1-7.8)
[2023-12-14 12:31] LABS: ALBUMIN 4.1 G/DL (3.2-5.2); ALKALINE PHOSPHATASE 75 U/L (46-116); ALT/SGPT 30 U/L (7.0-40); AST/SGOT 19 U/L (<34); BILIRUBIN,TOTAL 0.5 MG/DL (0.3-1.2); BLOOD UREA NITROGEN 14 MG/DL (9-23); CALCIUM LEVEL 9.7 MG/DL (8.3-10.6); CARBON DIOXIDE LEVEL 30 MMOL/L (20-31); CHLORIDE LEVEL 103 MMOL/L (98-107); CHOLESTEROL LEVEL 170 MG/DL (<200); CHOLESTEROL RISK RATIO 2.77 (<5); CREATININE FOR GFR 0.86 MG/DL (0.55-1.30); GLOMERULAR FILTRATION RATE > 60.0 (>45); GLUCOSE, FASTING 93 MG/DL (74-106); HDL CHOLESTEROL 61.3 MG/DL (>40); LDL CHOLESTEROL 81.9 MG/DL (<100); NON-HDL-C 108.7 MG/DL; POTASSIUM SERUM 4.3 MMOL/L (3.5-5.1); SODIUM LEVEL 141 MMOL/L (136-145); TOTAL PROTEIN 6.8 G/DL (5.7-8.2); TRIGLYCERIDES LEVEL 134 MG/DL (<150)
[2023-12-14 15:39] LABS: FREE T3 2.9 PG/ML (2.3-4.2)
== END ==
LOC: M WUC 08:06
PROVIDERS: ATTEND Family Medicine
DX: M10.9 Gout, unspecified (principal); E55.9 Vitamin D deficiency, unspecified; E03.9 Hypothyroidism, unspecified; E78.5 Hyperlipidemia, unspecified; R73.01 Impaired fasting glucose

== ENCOUNTER → 2024-04-16 | Outpatient (REF) | payer MEDICARE, OTHER ==
[2024-04-18 13:26] LABS: HPV APTIMA Not Detected (Not Detected)
== END ==
LOC: M SFHCWAGY 17:37
PROVIDERS: ATTEND Nurse Practitioner Family
DX: Z12.4 Encounter for screening for malignant neoplasm of cervix (principal); N95.2 Postmenopausal atrophic vaginitis
CPT/HCPCS: 87624; G0123

== ENCOUNTER → 2024-05-12 | Outpatient (CLI) | payer MEDICARE, BC | LOC: M WHC 08:26 | PROVIDERS: ATTEND Nurse Practitioner Family | DX: Z12.31 Encounter for screening mammogram for malignant neoplasm of breast (principal); R92.313 Mammographic fatty tissue density, bilateral breasts ==

== ENCOUNTER → 2024-11-04 | Outpatient (CLI) | payer MEDICARE, BC, OTHER ==
[~2024-11-04] MED LIST changes: +AZEL1SPR3; +FERR325T3 PO; +FLUTISP
[2024-11-04 12:48] LABS: HEMOGLOBIN 12.7 g/dl (12.0-15.5); MEAN CORPUSCULAR HEMOGLOBIN 30.2 pg (27.0-33.0); MEAN CORPUSCULAR HGB CONC 31.8 g/dl (32.0-36.5); MEAN CORPUSCULAR VOLUME 95.2 fl (80.0-96.0); PLATELET COUNT, AUTOMATED 180 10^3/uL (150-450)
[2024-11-04 12:50] LABS: URIC ACID 4.8 MG/DL (3.1-7.8)
[2024-11-04 12:53] LABS: ALBUMIN 4.3 G/DL (3.2-5.2); BILIRUBIN,TOTAL 0.3 MG/DL (0.3-1.2); CALCIUM LEVEL 9.7 MG/DL (8.3-10.6); CHOLESTEROL RISK RATIO 3.26 (<5); CREATININE FOR GFR 0.78 MG/DL (0.55-1.30); GLOMERULAR FILTRATION RATE 82.7 (>45); HDL CHOLESTEROL 56.6 MG/DL (>40); LDL CHOLESTEROL 97.4 MG/DL (<100); NON-HDL-C 128.4 MG/DL; PERCENT SATURATION 11.4 % (13.2-45.0); POTASSIUM SERUM 4.4 MMOL/L (3.5-5.1); TOTAL PROTEIN 7.1 G/DL (5.7-8.2)
[2024-11-04 12:54] LABS: FERRITIN 10.4 NG/ML (7.3-270.7); FREE T4 1.13 NG/DL (0.89-1.76); THYROID STIMULATING HORMONE 1.664 uIU/ML (0.55-4.78)
[2024-11-04 12:55] LABS: TOTAL 25(OH) VITAMIN D 39.9 NG/ML (20.0-100.0)
[2024-11-04 12:58] LABS: FREE T3 2.9 PG/ML (2.3-4.2)
[2024-11-04 13:56] LABS: ATYPICAL LYMPH 17 % (0-5); BASOPHILS 1 % (0-1); BLAST CELLS 3 % (0-0); LYMPHOCYTES 66 % (16-44); MONOCYTES 3 % (0-5); NEUTROPHILS 10 % (28-66)
[2024-11-04 13:58] LABS: PLATELET ESTIMATE NORMAL (NORMAL)
== END ==
LOC: M WUC 08:01
PROVIDERS: ATTEND Family Medicine
DX: I10 Essential (primary) hypertension (principal); M10.9 Gout, unspecified; D50.9 Iron deficiency anemia, unspecified

== ENCOUNTER → 2025-05-04 | Outpatient (CLI) | payer MEDICARE, BC ==
[~2025-05-04] MED LIST changes: -COLC0.6T47 PO; +COLC0.6T53 PO
[2025-05-04 12:29] LABS: PLATELET COUNT, AUTOMATED 135 10^3/uL (150-450)
[2025-05-04 12:39] LABS: ESTIMATED AVERAGE GLUCOSE 105.0 MG/DL (60-110)
[2025-05-04 12:57] LABS: ATYPICAL LYMPH 23 % (0-5); LYMPHOCYTES 61 % (16-44); MONOCYTES 10 % (0-5); NEUTROPHILS 6 % (28-66); PLATELET ESTIMATE DECREASED (NORMAL)
[2025-05-04 13:07] LABS: ALT/SGPT 40.0 U/L (7.0-40); AST/SGOT 35.0 U/L (<34); CALCIUM LEVEL 9.5 MG/DL (8.3-10.6); CARBON DIOXIDE LEVEL 29.0 MMOL/L (20-31); CHLORIDE LEVEL 101.0 MMOL/L (98-107); CHOLESTEROL LEVEL 176.0 MG/DL (<200); CHOLESTEROL RISK RATIO 3.34 (<5); CREATININE FOR GFR 0.82 MG/DL (0.55-1.30); GLOMERULAR FILTRATION RATE 77.9 (>45); LDL CHOLESTEROL 92.4 MG/DL (<100); NON-HDL-C 123.4 MG/DL; POTASSIUM SERUM 4.4 MMOL/L (3.5-5.1); SODIUM LEVEL 140.0 MMOL/L (136-145); TOTAL 25(OH) VITAMIN D 39.4 NG/ML (20.0-100.0); TRIGLYCERIDES LEVEL 155.0 MG/DL (<150)
[2025-05-04 13:08] LABS: FREE T4 1.29 NG/DL (0.89-1.76)
== END ==
LOC: M WUC 08:21
PROVIDERS: ATTEND Family Medicine
DX: M10.9 Gout, unspecified (principal); R73.01 Impaired fasting glucose; I10 Essential (primary) hypertension; E03.9 Hypothyroidism, unspecified; E55.9 Vitamin D deficiency, unspecified

== ENCOUNTER → 2025-06-03 | Outpatient (CLI) | payer MEDICARE, BC | LOC: M WHC 07:22 | PROVIDERS: ATTEND Nurse Practitioner Family | DX: Z12.31 Encounter for screening mammogram for malignant neoplasm of breast (principal); R92.313 Mammographic fatty tissue density, bilateral breasts ==